=== PATIENT | female | born 1935 | race Caucasian/White ===

== ENCOUNTER 2020-08-01 22:04 | Day surgery (SDC) | payer MEDICARE, OTHER ==
[~2020-08-01] VITALS: Ht 165 cm; Wt 71.5 kg
[2020-08-01] MEDS ORDERED: LACTATED RINGERS 1,000 ML IV ONE (22:37)
[2020-08-01 22:53] LABS: BASOPHILS % (AUTO) 0 % (0-10); EOSINOPHILS # (AUTO) 0.1 10^3/uL (0.0-0.3); EOSINOPHILS % (AUTO) 2 % (0-10); HEMATOCRIT 43 % (35-52); HEMOGLOBIN 13.8 g/dL (11.5-16.0); LYMPHOCYTES # (AUTO) 1.7 10^3/uL (1.0-4.0); LYMPHOCYTES % (AUTO) 25 % (12-44); MEAN CORPUSCULAR HEMOGLOBIN 30 pg (25-34); MEAN CORPUSCULAR HGB CONC 33 g/dL (32-36); MEAN CORPUSCULAR VOLUME 91 fL (80-99); MEAN PLATELET VOLUME 9.6 fL (9.0-12.2); MONOCYTES # (AUTO) 0.6 10^3/uL (0.0-1.0); MONOCYTES % (AUTO) 9 % (0-12); NEUTROPHILS # (AUTO) 4.3 10^3/uL (1.8-7.8); NEUTROPHILS % (AUTO) 64 % (42-75); PLATELET COUNT 258 10^3/uL (130-400); WHITE BLOOD COUNT 6.7 10^3/uL (4.3-11.0)
[2020-08-01 22:55] LABS: BILIRUBIN,URINE NEGATIVE (NEGATIVE); CLARITY,URINE SL CLOUDY; COLOR,URINE YELLOW; GLUCOSE, URINE (UA) 3+ (NEGATIVE); KETONES,URINE TRACE (NEGATIVE); LEUKOCYTE ESTERASE ,URINE NEGATIVE (NEGATIVE); NITRITE,URINE NEGATIVE (NEGATIVE); PH,URINE 5.5 (5-9); PROTEIN,URINE NEGATIVE (NEGATIVE)
[2020-08-01 23:01] LABS: BACTERIA,URINE FEW /HPF
--- NOTE | 2020-08-01 23:02 | ED Abdominal Pain ---
General Chief Complaint: Abdominal/GI Problems Stated Complaint: CONSTIPATION Nursing Triage Note: c/o constipation x11 days. drank 1 bottle mg citrate approx. 1700 without results. Sepsis Screen: No Definite Risk Source of Information: Patient Exam Limitations: No Limitations History of Present Illness Date Seen by Provider: Aug 01, 2020 Time Seen by Provider: 22:25 Initial Comments This delightful 84-year-old woman presents to the emergency room with complaints of though bowel movement for 11 days. 2 weeks ago ago she had a dental extrac tion. She had a bout of diarrhea after that which she presumed it was related to medications she received 4 anesthetics. Since then she has been experiencing constipation. She did salt water cleanses consisting of 2 teaspoons of pink salt in a quart of water about a week ago and again about 3 days ago. The first one produced a bowel movement, but the second one did not. She has not had any bowel movement whatsoever since the first cleanse. Tonight she tried magnesium citrate without any improvement. She has escalating right sided abdominal pain. She denies any history of abdominal surgeries or chronic health problems. Prior to this month she had not been to see a doctor in 40 years since she finished having children. During the past week she did present to the [facility] walk- in clinic in [place] where blood work was reportedly obtained. An x-ray was also done. She reports no significant findings through these encounters. Allergies and Home Medications Allergies Coded Allergies: Penicillins (Verified Allergy, Unknown, 08/01/20) Patient Home Medication List Home Medication List Reviewed: Yes Review of Systems Review of Systems Constitutional: no symptoms reported EENTM: No Symptoms Reported Respiratory: No Symptoms Reported Cardiovascular: Other (hypertension noted) Gastrointestinal: See HPI, Nausea; Denies Vomiting Genitourinary: No Symptoms Reported Musculoskeletal: no symptoms reported Skin: no symptoms reported Psychiatric/Neurological: No Symptoms Reported Endocrine: No Symptoms Reported Hematologic/Lymphatic: No Symptoms Reported Past Xgraeja-Kznagz-Yedlln Hx Past Med/Social Hx: Reviewed Nursing Past Med/Soc Hx Patient Social History Alcohol Use: Denies Use Recreational Drug Use: No Smoking Status: Never a Smoker 2nd Hand Smoke Exposure: No Recent Foreign Travel: No Contact w/Someone Who Travel: No Recent Infectious Disease Expo: No Recent Hopitalizations: No Immunizations Up To Date Tetanus Booster (TDap): Unknown Seasonal Allergies Seasonal Allergies: No Past Medical History Surgeries: No Respiratory: No Cardiac: No Neurological: 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 oz. 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, no motor/sensory deficits, alert, normal mood/affect, oriented x 3 Skin: normal color, warm/dry Progress/Results/Core Measures Results/Orders Lab Results Laboratory Tests Test 08/01/20 22:40 08/01/20 22:45 Range/Units Urine Color YELLOW Urine Clarity SL CLOUDY Urine pH 5.5 5-9 Urine Specific [place] 1.015 L 1.016-1.022 Urine Protein NEGATIVE NEGATIVE Urine Glucose (UA) 3+ H NEGATIVE Urine Ketones TRACE H NEGATIVE Urine Nitrite NEGATIVE NEGATIVE Urine Bilirubin NEGATIVE NEGATIVE Urine Urobilinogen 1.0 < = 1.0 MG/DL Urine Leukocyte Esterase NEGATIVE NEGATIVE Urine RBC (Auto) NEGATIVE NEGATIVE Urine RBC NONE /HPF Urine WBC 5-10 H /HPF Urine Squamous Epithelial Cells 5-10 /HPF Urine Crystals NONE /LPF Urine Bacteria FEW H /HPF Urine Casts NONE /LPF Urine Mucus NEGATIVE /LPF Urine Culture Indicated YES White Blood Count 6.7 4.3-11.0 10^3/uL Red Blood Count 4.66 3.80-5.11 10^6/uL Hemoglobin 13.8 11.5-16.0 g/dL Hematocrit 43 35-52 % Mean Corpuscular Volume 91 80-99 fL Mean Corpuscular Hemoglobin 30 25-34 pg Mean Corpuscular Hemoglobin Concent 33 32-36 g/dL Red Cell Distribution Width 13.0 10.0-14.5 % Platelet Count 258 130-400 10^3/uL Mean Platelet Volume 9.6 9.0-12.2 fL Immature Granulocyte % (Auto) 0 % Neutrophils (%) (Auto) 64 42-75 % Lymphocytes (%) (Auto) 25 12-44 % Monocytes (%) (Auto) 9 0-12 % Eosinophils (%) (Auto) 2 0-10 % Basophils (%) (Auto) 0 0-10 % Neutrophils # (Auto) 4.3 1.8-7.8 10^3/uL Lymphocytes # (Auto) 1.7 1.0-4.0 10^3/uL Monocytes # (Auto) 0.6 0.0-1.0 10^3/uL Eosinophils # (Auto) 0.1 0.0-0.3 10^3/uL Basophils # (Auto) 0.0 0.0-0.1 10^3/uL Immature Granulocyte # (Auto) 0.0 0.0-0.1 10^3/uL Sodium Level 139 135-145 MMOL/L Potassium Level 3.7 3.6-5.0 MMOL/L Chloride Level 99 98-107 MMOL/L Carbon Dioxide Level 29 21-32 MMOL/L Anion Gap 11 5-14 MMOL/L Blood Urea Nitrogen 10 7-18 MG/DL Creatinine 1.15 0.60-1.30 MG/DL Estimat Glomerular Filtration Rate 45 BUN/Creatinine Ratio 9 Glucose Level 398 H 70-105 MG/DL Calcium Level 9.7 8.5-10.1 MG/DL Corrected Calcium 9.6 8.5-10.1 MG/DL Total Bilirubin 1.0 0.1-1.0 MG/DL Aspartate Amino Transf (AST/SGOT) 17 5-34 U/L Alanine Aminotransferase (ALT/SGPT) 19 0-55 U/L Alkaline Phosphatase 182 H 40-136 U/L C-Reactive Protein High Sensitivity 1.77 H 0.00-0.50 MG/DL Total Protein 7.3 6.4-8.2 GM/DL Albumin 4.1 3.2-4.5 GM/DL Lipase 51 8-78 U/L TSH [place] Testing 0.49 0.35-4.94 UIU/ML My Orders Orders - TONIE VALDEZ MD Cbc With Automated Diff (08/01/20 22:37) Comprehensive Metabolic Panel (08/01/20 22:37) Hs C Reactive Protein (08/01/20 22:37) Lipase (08/01/20 22:37) Ua Culture If Indicated (08/01/20 22:37) Ed Iv/Invasive Line Start (08/01/20 22:37) Lactated Ringers (Lr 1000 Ml Iv Solution (08/01/20 22:37) Urine Culture (08/01/20 22:40) Thyroid Analyzer (08/01/20 22:45) Ct Abdomen/Pelvis Wo (08/01/20 23:18) Ceftriaxone For Iv Use (Rocephin For I (08/02/20 00:15) Ciprofloxacin Iv 400mg/200ml (Cipro Iv S (08/02/20 00:15) Medications Given in ED Current Medications Medications Dose Ordered Sig/Michelle Route Start Time Stop Time Status Last Admin Dose Admin Lactated Ringer's 1,000 ml @ 0 mls/hr Q0M ONCE IV 08/01/20 22:37 08/01/20 22:38 DC 08/01/20 22:47 0 MLS/HR Vital Signs/I&O 08/01/20 22:10 Temp 36.2 Pulse 86 Resp 16 B/P (MAP) 186/112 (136) Pulse Ox 99 O2 Delivery Room Air 08/02/20 00:00 Intake Total 1000 ml Balance 1000 ml Blood Pressure Mean: 136 Progress Progress Note : Time: 00:48 Progress Note Patient was treated with a liter of IV fluids and Zofran. She declined treatment for her pain. Labs revealed hyperglycemia with new diagnosis of diabetes. She also had evidence of urinary tract infection on urinalysis. CT demonstrated proximal colonic distention with a spasm versus core lesion in the sigmoid colon. I discussed options with the patient and her daughters. Admission to expedite treatment of hypertension, diabetes, urinary tract infection, and possible bowel pathology was felt most appropriate after discussion. Patient was initially somewhat resistant but eventually conceded admission was a good idea to expedite her care. Despite discussing the plan previously to which the patient was agreeable, patient is now refusing the antibiotics stating she prefers to use [id number] cranberry juice and other herbal remedies. She states "I just don't feel comfortable taking antibiotics." She also indicated she would likely refuse the insulin as well. She has had multiple trips to the restroom during her ER stay. She reports one episode of scant watery stool. Diagnostic Imaging Diagonstic Imaging: CT Plain Films/CT/US/NM/MRI: abdomen, pelvis Comments CT abdomen and pelvis viewed by me and stat rad report reviewed. There is redundant colon with colonic distention. There is area of luminal stenosis in the sigmoid colon that could be from spasm or small core lesion. Incidental compression fracture at L1. Departure Communication (Admissions) Time/Spoke to Admitting Phy: 00:15 Dr. Emmanuelle Jeff will be consulted in the morning. Impression Primary Impression: Right sided abdominal pain Additional Impressions: Diabetes mellitus, new onset Urinary tract infection Qualified Codes: N39.0 - Urinary tract infection, site not specified Abnormal CT of the abdomen Hypertension Qualified Codes: I10 - Essential (primary) hypertension Disposition: ADMITTED INPATIENT Condition: Stable Admissions Decision to Admit Reason: Admit from ER (General) Decision to Admit/Date: Aug 02, 2020 Time/Decision to Admit Time: 00:15 Departure-Patient Inst. Referrals: NO,LOCAL PHYSICIAN (PCP/Family) Primary Care Physician TONIE VALDEZ MD Aug 01, 2020 23:02
[2020-08-01 23:09] LABS: ALBUMIN 4.1 GM/DL (3.2-4.5); POTASSIUM 3.7 MMOL/L (3.6-5.0)
[2020-08-01 23:10] LABS: CALCIUM 9.7 MG/DL (8.5-10.1)
[2020-08-01 23:11] LABS: TOTAL PROTEIN 7.3 GM/DL (6.4-8.2)
[2020-08-01 23:15] LABS: CREATININE SERUM 1.15 MG/DL (0.60-1.30)
[2020-08-01 23:47] LABS: TSH (THYROID ANALYZER) 0.49 UIU/ML (0.35-4.94)
[2020-08-02] MEDS: CIPROFLOXACIN IV 400MG/200ML 200 ML IV ONE ×2 (00:23→00:41)
[2020-08-02] MEDS: cefTRIAXone FOR IV USE 1,000 MG in WATER (STERILE) FOR INJECTION 10 ML IV ONE ×2 (00:23→00:42)
--- NOTE | 2020-08-02 00:40 | NUR ---
pt declined iv abx. reports she only takes herbal supplements. erp notified et. speaking with pt.
--- NOTE | 2020-08-02 01:02 | NUR ---
POLO MARIANO admitted to room 421-1, with an admitting diagnosis of ABDOMINAL PAIN, NEW DM, UTI on 08/02/20 from [facility] via WHEELCHAIR, accompanied by ER STAFF.POLO MARIANO introduced to surroundings, call light, bed controls, phone, TV, temperature control, lights, meal times, smoking policy, visitor policy, side rail policy, bathrooms and showers. Patient Rights given to patient in the handbook. POLO MARIANO verbalizes understanding that [facility] is not responsible for the loss or damage to any personal effects or valuables that are kept in the patients possession during their hospitalization.
[2020-08-02 01:06] VITALS: BP 181/85
[2020-08-02] MEDS ORDERED: fentaNYL INJECTION 100 MCG/2 ML AMP IVP PRN (01:15)
[2020-08-02] MEDS ORDERED: ONDANSETRON 4 MG/2 ML (SDV) Z0FRAN IVP PRN (01:15)
[2020-08-02] MEDS: LACTATED RINGERS 1,000 ML IV SCH ×3 (01:23→17:20)
[2020-08-02 04:42] VITALS: BP 152/72
--- NOTE | 2020-08-02 06:09 | Diagnostic Imaging Report ---
EXAM: CT Abdomen and Pelvis Without Intravenous Contrast. TECHNIQUE: All CT scans use one or more of the following dose optimizing techniques: automated exposure control, MA and/or KvP adjustment based on a patient size and exam type, or iterative reconstruction. INDICATION: Right-sided abdominal pain. Constipation. FINDINGS: The lung bases are clear. Liver appears normal. Gallbladder and bile ducts are normal. Pancreas and spleen are normal. The adrenal glands and kidneys are normal. The stomach is not distended. Small bowel is not dilated. There is moderate distention of the colon along the ascending, transverse and descending colon. There does appear to be a transition zone within the mid sigmoid region. Concern is raised for possible apple core lesion. No evidence of intra-abdominal adenopathy of pathologic size. Bladder is not distended. No pelvic masses with normal-appearing uterus. No free air or free fluid. There are diverticula in the sigmoid colon without evidence of diverticulitis. There is mild inferior endplate compression fracture of L1 with sclerosis most likely representing old change. There is no perivertebral edema. Aorta is very atherosclerotic and ectatic. Maximal diameter of the distal aorta is 2.8 cm. IMPRESSION: 1. Distended colon with transition zone in the mid sigmoid region raising concern of possible obstructing apple core lesion. Would recommend direct observation. These findings are concordant with the preliminary report. Dictated by: Dictated on workstation # [id number]
[2020-08-02 06:11] LABS: BASOPHILS % (AUTO) 1 % (0-10); EOSINOPHILS # (AUTO) 0.1 10^3/uL (0.0-0.3); EOSINOPHILS % (AUTO) 2 % (0-10); HEMATOCRIT 38 % (35-52); LYMPHOCYTES # (AUTO) 1.3 10^3/uL (1.0-4.0); LYMPHOCYTES % (AUTO) 26 % (12-44); MEAN CORPUSCULAR HEMOGLOBIN 29 pg (25-34); MEAN CORPUSCULAR HGB CONC 32 g/dL (32-36); MEAN CORPUSCULAR VOLUME 92 fL (80-99); MONOCYTES # (AUTO) 0.5 10^3/uL (0.0-1.0); MONOCYTES % (AUTO) 9 % (0-12); NEUTROPHILS # (AUTO) 3.1 10^3/uL (1.8-7.8); NEUTROPHILS % (AUTO) 62 % (42-75); PLATELET COUNT 222 10^3/uL (130-400); WHITE BLOOD COUNT 5.1 10^3/uL (4.3-11.0)
[2020-08-02 06:15] LABS: ALBUMIN 3.5 GM/DL (3.2-4.5); CHLORIDE 104 MMOL/L (98-107); POTASSIUM 3.9 MMOL/L (3.6-5.0); SODIUM 140 MMOL/L (135-145)
[2020-08-02 06:16] LABS: CALCIUM 9.1 MG/DL (8.5-10.1)
[2020-08-02 06:17] LABS: GLUCOSE 310 MG/DL (70-105); TOTAL PROTEIN 6.1 GM/DL (6.4-8.2)
[2020-08-02 06:19] LABS: BILIRUBIN,TOTAL 0.9 MG/DL (0.1-1.0); CARBON DIOXIDE 27 MMOL/L (21-32)
[2020-08-02 06:21] LABS: ALKALINE PHOSPHATASE 156 U/L (40-136); CREATININE SERUM 0.87 MG/DL (0.60-1.30); GFR ESTIMATED > 60
[2020-08-02 06:22] LABS: BUN/CREATININE RATIO 9
[2020-08-02 06:24] LABS: ALANINE AMINOTRANSFERASE 17 U/L (0-55)
[2020-08-02] MEDS: inSUlin ASPART (NovoLOG) 1 UNIT/0.01 ML (CHARGE PER UNIT) SC SCH ×4 (06:27→21:31)
--- NOTE | 2020-08-02 07:36 | Consultation - Surgery ---
OBED FORTUNE MED STUDENT 08/02/20 0736: History of Present Illness History of Present Illness Patient Consulted On(charisma/time) 08/02/20 07:28 Date Seen by Provider: Aug 02, 2020 Time Seen by Provider: 07:00 History of Present Illness This is an 84 YO female who presented to the ED with no bowel movements for 11 days. Pt did a salt water cleanse one week ago, which produced one BM, but none since. No improvement with Mag Citrate last night. In the ER, pt was found to have a UTI, glucose of 398, and abdominal CT showing colonic distension and possible apple core lesion. Pt had IV fluids and Zofran, but declined pain medications, antibiotics, and insulin. Pt has no history of medical problems, but has not been to the doctor for over 40 years. No abdominal surgeries. Today, pt states her pain is mainly in the RLQ. Had 2 small watery BM's since admission to the hospital. No blood in the stool. No N/V, CP, or SOB. WBC today is 5.1 from 6.7 in the ER last night. Glucose is 310. Hgb is 12.0 from 13.8 last night. Allergies and Home Medications Allergies Coded Allergies: Penicillins (Verified Allergy, Severe, SEVERE HIVES ALL OVER BODY, 08/02/20) Home Medications No Active Prescriptions or Reported Meds Past Dwqwlly-Ksuvjk-Jmaiyp Hx Patient Social History Alcohol Use: Denies Use Recreational Drug Use: No Smoking Status: Never a Smoker 2nd Hand Smoke Exposure: No Recent Foreign Travel: No Contact w/Someone Who Travel: No Recent Infectious Disease Expo: No Recent Hopitalizations: No Immunizations Up To Date Tetanus Booster (TDap): Unknown Seasonal Allergies Seasonal Allergies: No Surgeries History of Surgeries: No Respiratory History of Respiratory Disorde: No Cardiovascular History of Cardiac Disorders: No Neurological History of Neurological Disord: No 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 Genitourinary History of Genitourinary Disor: No Gastrointestinal History of Gastrointestinal Di: No Musculoskeletal History of Musculoskeletal Dis: No Endocrine History of Endocrine Disorders: No HEENT History of HEENT Disorders: No Cancer History of Cancer: No Psychosocial History of Psychiatric Problem: No Integumentary History of Skin or Integumenta: No Blood Transfusions History of Blood Disorders: No Family Medical History Family Medial History: Aneurysm Arthritis 19 FATHER Diabetes mellitus 19 FATHER Review of Systems-General Constitutional: No chills, No fever EENTM: No blurred vision, No double vision Respiratory: No cough, No dyspnea on exertion Cardiovascular: No chest pain, No edema Gastrointestinal: abdominal pain (RLQ); No nausea, No vomiting Genitourinary: No frequency, No hematuria Musculoskeletal: No back pain, No muscle pain Skin: No change in color, No change in hair/nails Psychiatric/Neurological: Denies Anxiety, Denies Depressed All Other Systems Reviewed Negative Unless Noted: Yes Physical Exam-General Problems Physical Exam Vital Signs Vital Signs - First Documented 08/01/20 22:10 Temp 36.2 Pulse 86 Resp 16 B/P (MAP) 186/112 (136) Pulse Ox 99 O2 Delivery Room Air Capillary Refill : Less Than 3 Seconds General Appearance: WD/WN, no apparent distress Eyes: Bilateral Eye Normal Inspection, Bilateral Eye EOMI HEENT: PERRL/EOMI, normal ENT inspection Neck: full range of motion, normal inspection Respiratory: chest non-tender, no respiratory distress, no accessory muscle use Cardiovascular: regular rate, rhythm, no edema, no murmur Gastrointestinal: soft, distended, other (diffuse tenderness, worst in RLQ) Extremities: normal inspection, no pedal edema Neurologic/Psychiatric: no motor/sensory deficits, alert, normal mood/affect Skin: normal color, warm/dry Lymphatic: no adenopathy Data Review Labs Laboratory Tests 08/01/20 22:40: Urine Color YELLOW, Urine Clarity SL CLOUDY, Urine pH 5.5, Urine Specific [place] 1.015L, Urine Protein NEGATIVE, Urine Glucose (UA) 3+H, Urine Ketones TRACEH, Urine Nitrite NEGATIVE, Urine Bilirubin NEGATIVE, Urine Urobilinogen 1.0, Urine Leukocyte Esterase NEGATIVE, Urine RBC (Auto) NEGATIVE, Urine RBC NONE, Urine WBC 5-10H, Urine Squamous Epithelial Cells 5-10, Urine Crystals NONE, Urine Bacteria FEWH, Urine Casts NONE, Urine Mucus NEGATIVE, Urine Culture Indicated YES 08/01/20 22:45: White Blood Count 6.7, Red Blood Count 4.66, Hemoglobin 13.8, Hematocrit 43, Mean Corpuscular Volume 91, Mean Corpuscular Hemoglobin 30, Mean Corpuscular Hemoglobin Concent 33, Red Cell Distribution Width 13.0, Platelet Count 258, Mean Platelet Volume 9.6, Immature Granulocyte % (Auto) 0, Neutrophils (%) (Auto) 64, Lymphocytes (%) (Auto) 25, Monocytes (%) (Auto) 9, Eosinophils (%) (Auto) 2, Basophils (%) (Auto) 0, Neutrophils # (Auto) 4.3, Lymphocytes # (Auto) 1.7, Monocytes # (Auto) 0.6, Eosinophils # (Auto) 0.1, Basophils # (Auto) 0.0, Immature Granulocyte # (Auto) 0.0, Sodium Level 139, Potassium Level 3.7, Chloride Level 99, Carbon Dioxide Level 29, Anion Gap 11, Blood Urea Nitrogen 10, Creatinine 1.15, Estimat Glomerular Filtration Rate 45, BUN/Creatinine Ratio 9, Glucose Level 398H, Calcium Level 9.7, Corrected Calcium 9.6, Total Bilirubin 1.0, Aspartate Amino Transf (AST/SGOT) 17, Alanine Aminotransferase (ALT/SGPT) 19, Alkaline Phosphatase 182H, C-Reactive Protein High Sensitivity 1.77H, Total Protein 7.3, Albumin 4.1, Lipase 51, TSH [place] Testing 0.49 08/02/20 05:52: White Blood Count 5.1, Red Blood Count 4.11, Hemoglobin 12.0, Hematocrit 38, Mean Corpuscular Volume 92, Mean Corpuscular Hemoglobin 29, Mean Corpuscular Hemoglobin Concent 32, Red Cell Distribution Width 12.9, Platelet Count 222, Mean Platelet Volume 10.0, Immature Granulocyte % (Auto) 0, Neutrophils (%) (Auto) 62, Lymphocytes (%) (Auto) 26, Monocytes (%) (Auto) 9, Eosinophils (%) (Auto) 2, Basophils (%) (Auto) 1, Neutrophils # (Auto) 3.1, Lymphocytes # (Auto) 1.3, Monocytes # (Auto) 0.5, Eosinophils # (Auto) 0.1, Basophils # (Auto) 0.0, Immature Granulocyte # (Auto) 0.0, Sodium Level 140, Potassium Level 3.9, Chloride Level 104, Carbon Dioxide Level 27, Anion Gap 9, Blood Urea Nitrogen 8, Creatinine 0.87, Estimat Glomerular Filtration Rate > 60, BUN/Creatinine Ratio 9, Glucose Level 310H, Calcium Level 9.1, Corrected Calcium 9.5, Total Bilirubin 0.9, Aspartate Amino Transf (AST/SGOT) 15, Alanine Aminotransferase (ALT/SGPT) 17, Alkaline Phosphatase 156H, Total Protein 6.1L, Albumin 3.5 Assessment/Plan Assessment/Plan Assessment/Plan UTI constipation DM high blood pressure refusing antibiotics, pain medication, and insulin bowel prep today, plan for colonoscopy in the morning Clinical Quality Measures DVT/VTE Risk/Contraindication: Risk Factor Score Per Nursin RFS Level Per Nursing on Admit: 3=High YASMIN JEFF DO 08/02/202031: History of Present Illness History of Present Illness History of Present Illness Consult requested for constipation/abnormal CT scan by Dr. Handley. Patient is an 84-year-old female who presented to the emergency department with 11 days of no bowel movement. Patient states that she was trying different cleanses in order to have a bowel movement but was only able to have one while doing so. Patient took mag citrate yesterday and now has had a little bit of success with passing stool. She is just not felt very well. She denies any abdominal pains. She has never had a colonoscopy performed. She denies any blood in the stools. She states nothing she is really done has made things better except for the mag citrate seems to be starting to move things through. She is never had really had any significant difficulties with bowel movements before. Patient had a CT scan with a possible apple core lesion noted in the sigmoid colon, with slight proximal distention of the colon to the lesion. Allergies and Home Medications Allergies Coded Allergies: Penicillins (Verified Allergy, Severe, SEVERE HIVES ALL OVER BODY, 08/02/20) Home Medications No Active Prescriptions or Reported Meds Patient Home Medication List Home Medication List Reviewed: Yes Past Dspelsu-Vtujhq-Lbuogd Hx Reviewed Nursing Assessment Reviewed/Agree w Nursing PMH: Yes Family Medical History Significant Family History: No Pertinent Family Hx Family Medial History: Aneurysm Arthritis 19 FATHER Diabetes mellitus 19 FATHER Review of Systems-General Constitutional: No chills, No fever EENTM: No blurred vision, No double vision Respiratory: No cough, No dyspnea on exertion Cardiovascular: No edema Gastrointestinal: abdominal pain (RLQ); No nausea, No vomiting Genitourinary: No frequency, No hematuria Musculoskeletal: No back pain, No muscle pain Skin: No change in color, No change in hair/nails Psychiatric/Neurological: Denies Anxiety, Denies Depressed All Other Systems Reviewed Negative Unless Noted: Yes (Negative excepted noted.) Physical Exam-General Problems Physical Exam General Appearance: WD/WN, no apparent distress HEENT: PERRL/EOMI, normal ENT inspection Neck: non-tender, supple, normal inspection Respiratory: chest non-tender, no respiratory distress, no accessory muscle use Cardiovascular: regular rate, rhythm, no edema, no JVD Gastrointestinal: distended (Minimal), other (Minimal diffuse tenderness, worst in RLQ) Rectal: deferred Back: no CVA tenderness, no vertebral tenderness Extremities: normal range of motion, normal inspection, no pedal edema Neurologic/Psychiatric: no motor/sensory deficits, alert, normal mood/affect, oriented x 3 Skin: normal color, warm/dry Lymphatic: no adenopathy Assessment/Plan Assessment/Plan Assessment/Plan constipation abnormal ct scan questionable apple core lesion sigmoid colon DM high blood pressure refusing antibiotics, pain medication, and insulin bowel prep today, plan for colonoscopy in the tomorrow she understands risks and benefits and wishes to proceed Golytely prep today, clear liquids, npo after midnight consent for colonoscopy Supervisory-Addendum Brief Verification & Attestation Participated in pt care: history, MDM, physical Personally performed: exam, history, MDM, supervision of care Care discussed with: Medical Student Procedures: n/a Results interpretation: Verified all documentation Verification and Attestation of Medical Student E/M Service A medical student performed and documented this service in my presence. I reviewed and verified all information documented by the medical student and made modifications to such information, when appropriate. I personally performed the physical exam and medical decision making. Yasmin Jeff, Aug 02, 2020,20:36 [employer]E MED STUDENT Aug 02, 2020 07:36 YASMIN JEFF DO Aug 02, 2020 20:32
[2020-08-02 08:00] VITALS: BP 126/69
[2020-08-02] MEDS: CIPROFLOXACIN 400 MG/D5W 200 ML (PRE-MIX) IV SCH ×2 (09:36→21:30)
[2020-08-02] MEDS: FAMOTIDINE 20MG/2ML IV (PEPCID) IVP SCH (09:36)
--- NOTE | 2020-08-02 09:58 | NUR ---
SPOKE WITH THE PT TO COMPLETE THE MED REC PT DENIES TAKING ANY PRESCRIPTION MEDICATIONS- WHEN I ASKED ABOUT OTC MEDS AND/OR SUPPLEMENTS PT SAID SHE DID TAKE SOME SUPPLEMENTS BUT COULD NOT REMEMBER THE NAMES AND INDICATED IT WAS NOTHING SHE TOOK CONSISTENTLY. FOR THIS REASON I SET HER PROFILE TO NO MEDICATIONS BUT I DID UPDATE HER PREFERRED PHARMACY
--- NOTE | 2020-08-02 11:55 | History & Physical ---
ROBERTO CARLOS SPARKS MED STUDENT 08/02/20 1155: HPI History of Present Illness: cc: constipation hpi: 84 yo F presents with constipation. pt stated that it has been 11 days since her last bm. pt stated that she self prescribed and took a bottle of magnesium citrate, then pt stated that this did not really do anything. pt had bm this morning. pt reported that there is no blood in the stool. pt stated that she has been having back pain. pt did not want to rate the pain. pt did not know when the pain started. pt stated she lifted something heavy and threw her back out. After 4 chiropractor visits her doctor told her it was her colon and not her back. Source: patient Date seen by provider: Aug 02, 2020 Time Seen by Provider: 08:45 Attending Physician Kathrine Handley MD PCP Eva Douglas Aprn Consult Date of Admission Aug 02, 2020 at 00:17 Home Medications Home Medications Reviewed patient Home Medication Reconciliation performed by pharmacy medication reconciliations electronics repair technician and/or nursing. Patients Allergies have been reviewed. Allergies Coded Allergies: Penicillins (Verified Allergy, Severe, SEVERE HIVES ALL OVER BODY, 08/02/20) HNP-Aspqzx-Gnpkuv Hx Patient Social History Marrital Status: Alcohol Use: Denies Use Recreational Drug Use: No Smoking Status: Never a Smoker 2nd Hand Smoke Exposure: No Recent Foreign Travel: No Contact w/other who traveled: No Recent Hopitalizations: No Recent Infectious Disease Expo: No Immunizations Up To Date Tetanus Booster (TDap): Unknown Past Medical History pt denied any past medical history. Family Medical History Significant Family History: Diabetes (father) Family History: Aneurysm Arthritis 19 FATHER Diabetes mellitus 19 FATHER Review of Systems ([facility]) Constitutional: No chills, No fever, No malaise Respiratory: No cough, No short of breath Cardiovascular: No chest pain, No palpitations Gastrointestinal: abdominal pain, constipation; No diarrhea, No nausea, No vomiting Genitourinary: No dysuria, No frequency, No incontinence Musculoskeletal: back pain; No joint pain Physical Exam-([facility]) Physical Exam Vital Signs VS - Last 72 Hours, by Label 08/01/20 08/02/20 08/02/20 08/02/20 22:10 00:44 01:02 01:06 Temp 36.2 36.6 36.3 Pulse 86 68 67 Resp 16 16 18 B/P (MAP) 186/112 (136) 161/98 (136) 181/85 Pulse Ox 99 100 100 O2 Delivery Room Air Room Air Room Air Room Air 08/02/20 08/02/20 08/02/20 04:42 08:00 08:00 Temp 36.2 36.6 Pulse 68 85 Resp 18 16 B/P (MAP) 152/72 (98) 126/69 (88) Pulse Ox 97 97 97 O2 Delivery Room Air Room Air Room Air Capillary Refill : Less Than 3 Seconds General Appearance: WD/WN, no apparent distress HEENT: PERRL/EOMI; No scleral icterus (R), No scleral icterus (L) Neck: non-tender, supple; No lymphadenopathy (R), No lymphadenopathy (L) Respiratory: chest non-tender, lungs clear, normal breath sounds, no respiratory distress, no accessory muscle use Cardiovascular: normal peripheral pulses, regular rate, rhythm, no edema, no murmur Peripheral Pulses: 2+ Carotid (R), 2+ Carotid (L), 2+ Dorsalis Pedis (R), 2+ Left Dors-Pedis (L), 2+ Radial Pulses (R), 2+ Radial Pulses (L) Gastrointestinal: normal bowel sounds, soft, tenderness (RLQ, LLQ) Extremities: non-tender, no pedal edema, normal capillary refill Neurologic/Psychiatric: maintenance mechanic millwright II-XII nml as tested, no motor/sensory deficits, alert, normal mood/affect, oriented x 3 Skin: normal color, warm/dry; No diaphoresis Lymphatic: no adenopathy Assessment/Plan Assessment/Plan Admission Status: Observation (1) Abnormal CT of the abdomen Status: Acute Assessment & Plan: colonscopy prep today, colonoscopy possibly or Friday (2) Right sided abdominal pain Status: Acute Assessment & Plan: colonscopy prep today, colonoscopy possibly or Friday (3) Hypertension Status: Acute Assessment & Plan: pt does not want to take any medications Qualifiers: Qualified Codes: I10 - Essential (primary) hypertension (4) Urinary tract infection Status: Acute Assessment & Plan: pt denied antibiotics Qualifiers: Qualified Codes: N39.0 - Urinary tract infection, site not specified (5) Diabetes mellitus, new onset Status: Acute Assessment & Plan: hemoglobin A1c ordered, pt denied insulin (6) DVT prophylaxis Status: Acute Assessment & Plan: lovenox injections Clinical Quality Measures DVT/VTE Risk/Contraindication: Risk Factor Score Per Nursin RFS Level Per Nursing on Admit: 3=High KATHRINE HANDLEY MD 08/02/20 2232: HPI History of Present Illness: Patient states that she has not had a BM in over a week. She has been having increasing abdominal pain. States that she thought it was her back but it did not improve with going to the chiropractor. States that she has not been to the doctor in a long time. Denies ever having any scopes. Source: patient Exam Limitations: no limitations Home Medications Allergies Coded Allergies: Penicillins (Verified Allergy, Severe, SEVERE HIVES ALL OVER BODY, 08/02/20) HPH-Hntpev-Seyeyj Hx Family Medical History Family History: Aneurysm Arthritis 19 FATHER Diabetes mellitus 19 FATHER Review of Systems ([facility]) Constitutional: no symptoms reported; No chills, No fever, No malaise Respiratory: no symptoms reported; No cough, No dyspnea on exertion, No short of breath Cardiovascular: no symptoms reported; No chest pain, No edema, No palpitations Gastrointestinal: abdominal pain, constipation; No diarrhea; loss of appetite; No nausea, No vomiting Genitourinary: no symptoms reported; No dysuria, No frequency, No hematuria : No Musculoskeletal: back pain; No joint pain, No muscle pain Skin: no symptoms reported; No lesions, No rash Psychiatric/Neurological: No Symptoms Reported, Weakness Reviewed Test Results Reviewed Test Results Lab Laboratory Tests Test 08/01/20 22:40 08/01/20 22:45 08/02/20 05:52 08/02/20 12:26 Range/Units Urine Color YELLOW Urine Clarity SL CLOUDY Urine pH 5.5 5-9 Urine Specific [place] 1.015 L 1.016-1.022 Urine Protein NEGATIVE NEGATIVE Urine Glucose (UA) 3+ H NEGATIVE Urine Ketones TRACE H NEGATIVE Urine Nitrite NEGATIVE NEGATIVE Urine Bilirubin NEGATIVE NEGATIVE Urine Urobilinogen 1.0 < = 1.0 MG/DL Urine Leukocyte Esterase NEGATIVE NEGATIVE Urine RBC (Auto) NEGATIVE NEGATIVE Urine RBC NONE /HPF Urine WBC 5-10 H /HPF Urine Squamous Epithelial Cells 5-10 /HPF Urine Crystals NONE /LPF Urine Bacteria FEW H /HPF Urine Casts NONE /LPF Urine Mucus NEGATIVE /LPF Urine Culture Indicated YES White Blood Count 6.7 5.1 4.3-11.0 10^3/uL Red Blood Count 4.66 4.11 3.80-5.11 10^6/uL Hemoglobin 13.8 12.0 11.5-16.0 g/dL Hematocrit 43 38 35-52 % Mean Corpuscular Volume 91 92 80-99 fL Mean Corpuscular Hemoglobin 30 29 25-34 pg Mean Corpuscular Hemoglobin Concent 33 32 32-36 g/dL Red Cell Distribution Width 13.0 12.9 10.0-14.5 % Platelet Count 258 222 130-400 10^3/uL Mean Platelet Volume 9.6 10.0 9.0-12.2 fL Immature Granulocyte % (Auto) 0 0 % Neutrophils (%) (Auto) 64 62 42-75 % Lymphocytes (%) (Auto) 25 26 12-44 % Monocytes (%) (Auto) 9 9 0-12 % Eosinophils (%) (Auto) 2 2 0-10 % Basophils (%) (Auto) 0 1 0-10 % Neutrophils # (Auto) 4.3 3.1 1.8-7.8 10^3/uL Lymphocytes # (Auto) 1.7 1.3 1.0-4.0 10^3/uL Monocytes # (Auto) 0.6 0.5 0.0-1.0 10^3/uL Eosinophils # (Auto) 0.1 0.1 0.0-0.3 10^3/uL Basophils # (Auto) 0.0 0.0 0.0-0.1 10^3/uL Immature Granulocyte # (Auto) 0.0 0.0 0.0-0.1 10^3/uL Sodium Level 139 140 135-145 MMOL/L Potassium Level 3.7 3.9 3.6-5.0 MMOL/L Chloride Level 99 104 98-107 MMOL/L Carbon Dioxide Level 29 27 21-32 MMOL/L Anion Gap 11 9 5-14 MMOL/L Blood Urea Nitrogen 10 8 7-18 MG/DL Creatinine 1.15 0.87 0.60-1.30 MG/DL Estimat Glomerular Filtration Rate 45 > 60 BUN/Creatinine Ratio 9 9 Glucose Level 398 H 310 H 70-105 MG/DL Calcium Level 9.7 9.1 8.5-10.1 MG/DL Corrected Calcium 9.6 9.5 8.5-10.1 MG/DL Total Bilirubin 1.0 0.9 0.1-1.0 MG/DL Aspartate Amino Transf (AST/SGOT) 17 15 5-34 U/L Alanine Aminotransferase (ALT/SGPT) 19 17 0-55 U/L Alkaline Phosphatase 182 H 156 H 40-136 U/L C-Reactive Protein High Sensitivity 1.77 H 0.00-0.50 MG/DL Total Protein 7.3 6.1 L 6.4-8.2 GM/DL Albumin 4.1 3.5 3.2-4.5 GM/DL Lipase 51 8-78 U/L TSH [place] Testing 0.49 0.35-4.94 UIU/ML Glucometer 263 H 70-110 MG/DL Test 08/02/20 19:37 Range/Units Glucometer 293 H 70-110 MG/DL Physical Exam-([facility]) Physical Exam General Appearance: WD/WN, no apparent distress HEENT: PERRL/EOMI Neck: non-tender, full range of motion, supple Respiratory: chest non-tender, lungs clear, normal breath sounds, no respiratory distress, no accessory muscle use Cardiovascular: normal peripheral pulses, regular rate, rhythm, no edema, no murmur Gastrointestinal: normal bowel sounds, soft; No guarding, No rebound; tenderness (RLQ, LLQ) Back: no CVA tenderness, no vertebral tenderness Extremities: normal range of motion, non-tender, no pedal edema, no calf tenderness, normal capillary refill Neurologic/Psychiatric: maintenance mechanic millwright II-XII nml as tested, no motor/sensory deficits, alert, normal mood/affect, oriented x 3 Skin: normal color, warm/dry Lymphatic: no adenopathy Assessment/Plan Assessment/Plan (1) Right sided abdominal pain Status: Acute Assessment & Plan: - Consult General Surgery for scopes, prep planned for tonight (2) Abnormal CT of the abdomen Status: Acute (3) Diabetes mellitus, new onset Status: Acute Assessment & Plan: hemoglobin A1c pending, SSI (patient has denied treatment) (4) Hypertension Status: Acute Assessment & Plan: - Start Lisinopril today, continue to monitor blood pressures Qualifiers: Qualified Codes: I10 - Essential (primary) hypertension (5) Urinary tract infection Status: Acute Assessment & Plan: - Patient declined antibiotics today Qualifiers: Qualified Codes: N39.0 - Urinary tract infection, site not specified (6) DVT prophylaxis Status: Acute Assessment & Plan: lovenox injections ROBERTO CARLOS SPARKS STUDENT Aug 02, 2020 11:55 KATHRINE HANDLEY MD Aug 02, 2020 22:32
[2020-08-02 12:00] VITALS: BP 136/72
--- NOTE | 2020-08-02 13:58 | NUR ---
"RD ASSESSMENT PMHx: no PMH, pt states she has not been to doctor in 40years; new onset DM PT INTERACTION: Pt was awake and pleasant during nutrition assessment. Pt states current appetite is good. Note pt is currently NPO, per chart review. Pt states following a regular diet at home, and has no issues with chewing/swallowing food. Pt states some recent issues with nausea. Pt states some recent issues with constipation, and that her last BM was 08/01. Note pt not currently on bowel regimen per chart review. Pt states recent wt loss during last 2-3w, but unsure of amount lost. Note unable to determine recent wt hx, per chart review. ABNORMAL NUTRITION-RELATED LAB VALUES LOW: Pro 6.1; HIGH: glu 310; alkphos 156 Est. kcal needs: 1425 kcal | 20 kcal/kg Est. Pro needs: 72 g Pro | 1.0 g Pro/kg PES STATEMENT: Inadequate oral intake (NI-2.1) related to nausea | NPO status as evidenced by pt interview | chart review INTERVENTION: Note pt is currently NPO. Would recommend diet advancement to consistent CHO diet, when medically able and as tolerated. Will offer diet education on DM management prior to discharge. Will continue to follow and reassess as pt needs, intake, and status change. Sandra Capellan, MS RD LD"
--- NOTE | 2020-08-02 15:00 | NUR ---
MESSAGE SENT TO DR SHORT PER PT REQUEST FOR POSSIBLE DIET ORDER.
[2020-08-02] MEDS ORDERED: GOLYTELY POWDER 4000 ML BTL PO NR (16:00)
[2020-08-02 16:07] VITALS: BP 133/93
[2020-08-02 21:20] VITALS: BP 179/83
[2020-08-03] VITALS (9 sets, daily range): BP systolic 134–184; BP diastolic 65–85
[2020-08-03] MEDS: LACTATED RINGERS 1,000 ML IV SCH ×4 (00:59→21:21)
[2020-08-03 06:48] LABS: BASOPHILS % (AUTO) 0 % (0-10); EOSINOPHILS # (AUTO) 0.1 10^3/uL (0.0-0.3); EOSINOPHILS % (AUTO) 3 % (0-10); HEMATOCRIT 36 % (35-52); HEMOGLOBIN 11.4 g/dL (11.5-16.0); LYMPHOCYTES # (AUTO) 1.2 10^3/uL (1.0-4.0); LYMPHOCYTES % (AUTO) 25 % (12-44); MEAN CORPUSCULAR HEMOGLOBIN 29 pg (25-34); MEAN CORPUSCULAR HGB CONC 32 g/dL (32-36); MEAN CORPUSCULAR VOLUME 92 fL (80-99); MEAN PLATELET VOLUME 10.5 fL (9.0-12.2); MONOCYTES # (AUTO) 0.5 10^3/uL (0.0-1.0); MONOCYTES % (AUTO) 10 % (0-12); NEUTROPHILS # (AUTO) 3.1 10^3/uL (1.8-7.8); NEUTROPHILS % (AUTO) 63 % (42-75); PLATELET COUNT 197 10^3/uL (130-400); WHITE BLOOD COUNT 4.9 10^3/uL (4.3-11.0)
[2020-08-03] MEDS: inSUlin ASPART (NovoLOG) 1 UNIT/0.01 ML (CHARGE PER UNIT) SC SCH ×4 (06:50→20:08)
[2020-08-03 07:12] LABS: ALANINE AMINOTRANSFERASE 14 U/L (0-55); ALBUMIN 3.1 GM/DL (3.2-4.5); ALKALINE PHOSPHATASE 135 U/L (40-136); BUN/CREATININE RATIO 7; CALCIUM 8.7 MG/DL (8.5-10.1); CARBON DIOXIDE 24 MMOL/L (21-32); CHLORIDE 103 MMOL/L (98-107); CREATININE SERUM 0.72 MG/DL (0.60-1.30); GFR ESTIMATED > 60; GLUCOSE 248 MG/DL (70-105); POTASSIUM 3.1 MMOL/L (3.6-5.0); SODIUM 140 MMOL/L (135-145); TOTAL PROTEIN 5.6 GM/DL (6.4-8.2)
[2020-08-03] MEDS: CIPROFLOXACIN 400 MG/D5W 200 ML (PRE-MIX) IV SCH ×2 (09:43→20:05)
[2020-08-03] MEDS: lisINopril 20 MG (PRINIVIL) TABLET PO SCH (09:44)
[2020-08-03] MEDS: FAMOTIDINE 20MG/2ML IV (PEPCID) IVP SCH (09:44)
[2020-08-03] MEDS ORDERED: KCL 20 MEQ TAB (K-DUR) PO NR (09:45)
--- NOTE | 2020-08-03 10:08 | NUR ---
CM/SS visited with patient for discharge planning. The patient was pleasant and willing to discuss discharge planning. She states she has done colon prep and is having a colonoscopy today. Home: The patient states that she still owns her house in [place]; however, she is staying with her son at [address] in [place]. She reports she has been living at her son's house with her spouse for the past 2 years. The patient states that all her needs are being met. She states that she is independent at home and is still able to do housecleaning and laundry; however, her daughter does assist with "her duties" such as cooking according to patient. Equipment: Patient states she has a shower chair and bedside commode. Denies any other equipment. Supports: The patient is receiving assistance from her son and daughter in [place]. She has additional children in [place] and [facility]. The patient is and living with her spouse at son's house. CM/SS will continue to follow.
--- NOTE | 2020-08-03 11:23 | NUR ---
WILL GIVE 40 OF PO POTASSIUM AFTER COLONOSCOPY PER DR HERNANDEZ
--- NOTE | 2020-08-03 12:19 | Progress Note ---
ROBERTO CARLOS SPARKS MED STUDENT 08/03/20 1219: Subjective Subjective/Events-last exam Pt stated that she is feeling better today, but that she is still having some low back pain. pt is also having RLQ tenderness to palpation. pain was rated as 2/10. pt stated that the pain is sharp and that she only notices it when she is moving around. pt said that the golytely she was given yesterday helped with her constipation. pt is scheduled for a colonoscopy today. Review of Systems General: No Chills, No Fatigue Pulmonary: No Dyspnea, No Cough Cardiovascular: No: Chest Pain, Palpitations Gastrointestinal: Abdominal Pain; No: Nausea, Vomiting, Diarrhea, Constipation, Melena Genitourinary: No Dysuria, No Frequency Musculoskeletal: back pain Focused Exam Respiratory: Chest Non Tender, Lungs Clear, Normal Breath Sounds, No Accessory Muscle Use, No Respiratory Distress Cardiovascular: Regular Rate, Rhythm, No Edema, Normal Peripheral Pulses Peripheral Pulses: 2+ Carotid (R), 2+ Carotid (L), 2+ Dorsalis Pedis (R), 2+ Left Dors-Pedis (L), 2+ Radial Pulses (R), 2+ Radial Pulses (L) Skin: normal color, warm/dry; No diaphoresis Objective Exam Last Set of Vital Signs Vital Signs Date Time Temp Pulse Resp B/P (MAP) Pulse Ox O2 Delivery O2 Flow Rate FiO2 08/03/20 11:10 36.6 62 16 164/74 (104) 96 08/03/20 03:59 Room Air Capillary Refill : Less Than 3 Seconds I&O Intake and Output 08/03/20 00:00 Intake Total 4000 ml Output Total 2075 ml Balance 1925 ml Intake Oral 4000 ml Output Urine Total 2075 ml # Bowel Movements 32 Daily Weight Change No No General: Alert, Oriented X3, No Acute Distress Neck: Supple Lungs: Clear to Auscultation Heart: Regular Rate, No Murmurs Abdomen: Normal Bowel Sounds Extremities: No Cyanosis, No Edema, Normal Pulses Neuro: Normal Speech Psych/Mental Status: Mental Status NL, Mood NL Results/Procedures Lab Laboratory Tests 08/02/20 12:26: Glucometer 263H 08/02/20 19:37: Glucometer 293H 08/03/20 05:25: White Blood Count 4.9, Red Blood Count 3.89, Hemoglobin 11.4L, Hematocrit 36, Mean Corpuscular Volume 92, Mean Corpuscular Hemoglobin 29, Mean Corpuscular Hemoglobin Concent 32, Red Cell Distribution Width 13.0, Platelet Count 197, Mean Platelet Volume 10.5, Immature Granulocyte % (Auto) 0, Neutrophils (%) (Auto) 63, Lymphocytes (%) (Auto) 25, Monocytes (%) (Auto) 10, Eosinophils (%) (Auto) 3, Basophils (%) (Auto) 0, Neutrophils # (Auto) 3.1, Lymphocytes # (Auto) 1.2, Monocytes # (Auto) 0.5, Eosinophils # (Auto) 0.1, Basophils # (Auto) 0.0, Immature Granulocyte # (Auto) 0.0, Sodium Level 140, Potassium Level 3.1L, Chloride Level 103, Carbon Dioxide Level 24, Anion Gap 13, Blood Urea Nitrogen 5L, Creatinine 0.72, Estimat Glomerular Filtration Rate > 60, BUN/Creatinine Ratio 7, Glucose Level 248H, Calcium Level 8.7, Corrected Calcium 9.4, Total Bilirubin 1.0, Aspartate Amino Transf (AST/SGOT) 15, Alanine Aminotransferase (ALT/SGPT) 14, Alkaline Phosphatase 135, Total Protein 5.6L, Albumin 3.1L 08/03/20 11:16: Glucometer 222H Microbiology 08/01/20 Urine Culture - Final, Complete >=3 Gram Positive Isolates Assessment/Plan Assessment/Plan (1) Right sided abdominal pain Status: Acute Assessment & Plan: - Consult General Surgery for scopes, colonoscopy planned fo r today (2) Abnormal CT of the abdomen Status: Acute Assessment & Plan: - colonoscopy planned for today (3) Diabetes mellitus, new onset Status: Acute Assessment & Plan: hemoglobin A1c pending, SSI (patient has denied treatment) (4) Hypertension Status: Acute Assessment & Plan: - Start Lisinopril today, continue to monitor blood pressures (patient has denied treatment) Qualifiers: Qualified Codes: I10 - Essential (primary) hypertension (5) Urinary tract infection Status: Acute Assessment & Plan: - Patient declined antibiotics today Qualifiers: Qualified Codes: N39.0 - Urinary tract infection, site not specified (6) Hypokalemia Status: Acute Assessment & Plan: potassium chloride tablets (7) DVT prophylaxis Status: Acute Assessment & Plan: lovenox injections Clinical Quality Measures DVT/VTE Risk/Contraindication: Risk Factor Score Per Nursin RFS Level Per Nursing on Admit: 3=High KATHRINE HANDLEY MD 08/03/202119: Subjective Subjective/Events-last exam Patient doing well. Plan for colonoscopy today. Review of Systems General: No Chills, No Fatigue Pulmonary: No Dyspnea, No Cough Cardiovascular: No: Chest Pain, Palpitations Gastrointestinal: No: Nausea, Vomiting, Diarrhea Genitourinary: No Dysuria, No Frequency Musculoskeletal: back pain Objective Exam General: Alert, Oriented X3, Cooperative, No Acute Distress HEENT: Mucous Memb Moist/[place] Lungs: Clear to Auscultation, Normal Air Movement Heart: Regular Rate, No Murmurs Abdomen: Normal Bowel Sounds, Soft, Other (RLQ ttp, no rebound or gaurding, normal bowel sounds) Extremities: No Edema, No Tenderness/Swelling Skin: No Rashes, No Breakdown Neuro: Normal Speech, Sensation Intact, Cranial Nerves 3-12 NL Psych/Mental Status: Mental Status NL, Mood NL Assessment/Plan Assessment/Plan (1) Right sided abdominal pain Status: Acute Assessment & Plan: - Consult General Surgery for scopes, colonoscopy planned for today 08/03: Patient prepped for scope today (2) Abnormal CT of the abdomen Status: Acute Assessment & Plan: - colonoscopy planned for today (3) Diabetes mellitus, new onset Status: Acute Assessment & Plan: hemoglobin A1c pending, SSI (patient has denied treatment) (4) Hypertension Status: Acute Assessment & Plan: - Start Lisinopril today, continue to monitor blood pressures (patient has denied treatment) Qualifiers: Qualified Codes: I10 - Essential (primary) hypertension (5) Urinary tract infection Status: Acute Assessment & Plan: - Patient declined antibiotics today Qualifiers: Qualified Codes: N39.0 - Urinary tract infection, site not specified (6) Hypokalemia Status: Acute Assessment & Plan: potassium chloride tablets (7) DVT prophylaxis Status: Acute Assessment & Plan: lovenox injections Supervisory-Addendum Brief Supervisory Addendum Verification and Attestation of Medical Student E/M Service A medical student performed and documented this service in my presence. I reviewed and verified all information documented by the medical student and made modifications to such information, when appropriate. I personally performed the physical exam and medical decision making. Kathrine Handley, Aug 03, 2020,21:20 ROBERTO CARLOS SPARKS MED STUDENT Aug 03, 2020 12:19 KATHRINE HANDLEY MD Aug 03, 2020 21:20
--- NOTE | 2020-08-03 14:00 | NUR ---
PT TAKEN OFF FLOOR FOR PROCEDURE
[2020-08-03] MEDS ORDERED: LACTATED RINGERS 1,000 ML IV STA (14:49)
[2020-08-03] MEDS ORDERED: LACTATED RINGERS 1,000 ML IV ONE (14:49)
[2020-08-03] MEDS ORDERED: PROPOFOL INJECTION 50 ML IV ONE (15:58)
--- NOTE | 2020-08-03 16:09 | Progress Note - Surgery ---
Subjective Date Seen by a Provider: Aug 03, 2020 Time Seen by a Provider: 15:51 Subjective/Events-last exam No new complaints. NPO. Did golytely prep. Had lots of bowel movements. Denies n/v fever sweats chills shortness of breath or chest pain. Objective Exam Vital Signs Date Time Temp Pulse Resp B/P (MAP) Pulse Ox O2 Delivery O2 Flow Rate FiO2 08/03/20 11:10 36.6 62 16 164/74 (104) 96 08/03/20 09:00 96 Room Air 08/03/20 07:15 36.9 64 16 137/80 (99) 94 08/03/20 03:59 36.5 61 20 134/65 (88) 97 Room Air 08/03/20 00:14 37.2 72 20 184/82 (116) 94 Room Air 08/02/20 21:20 179/83 (115) 08/02/20 20:30 Room Air 08/02/20 19:47 36.7 91 16 96 Room Air I & O 08/03/20 07:00 Intake Total 5100 ml Output Total 2300 ml Balance 2800 ml Capillary Refill : Less Than 3 Seconds General Appearance: No Apparent Distress, WD/WN HEENT: PERRL/EOMI Neck: Full Range of Motion, Non Tender Respiratory: Chest Non Tender, No Accessory Muscle Use, No Respiratory Distress Cardiovascular: Regular Rate, Rhythm, No Edema, Normal Peripheral Pulses Peripheral Pulses: 2+ Carotid (R), 2+ Carotid (L), 2+ Dorsalis Pedis (R), 2+ Left Dors-Pedis (L), 2+ Radial Pulses (R), 2+ Radial Pulses (L) Gastrointestinal: normal bowel sounds, soft; No guarding, No rebound Extremity: Normal Inspection, Normal Range of Motion Neurologic/Psychiatric: Alert, Oriented x3, No Motor/Sensory Deficits Skin: Normal Color, Warm/Dry Lymphatic: No Adenopathy Results Lab Laboratory Tests 08/02/20 19:37: Glucometer 293H 08/03/20 05:25: White Blood Count 4.9, Red Blood Count 3.89, Hemoglobin 11.4L, Hematocrit 36, Mean Corpuscular Volume 92, Mean Corpuscular Hemoglobin 29, Mean Corpuscular He moglobin Concent 32, Red Cell Distribution Width 13.0, Platelet Count 197, Mean Platelet Volume 10.5, Immature Granulocyte % (Auto) 0, Neutrophils (%) (Auto) 63, Lymphocytes (%) (Auto) 25, Monocytes (%) (Auto) 10, Eosinophils (%) (Auto) 3, Basophils (%) (Auto) 0, Neutrophils # (Auto) 3.1, Lymphocytes # (Auto) 1.2, Monocytes # (Auto) 0.5, Eosinophils # (Auto) 0.1, Basophils # (Auto) 0.0, Immature Granulocyte # (Auto) 0.0, Sodium Level 140, Potassium Level 3.1L, Chloride Level 103, Carbon Dioxide Level 24, Anion Gap 13, Blood Urea Nitrogen 5L, Creatinine 0.72, Estimat Glomerular Filtration Rate > 60, BUN/Creatinine Ratio 7, Glucose Level 248H, Calcium Level 8.7, Corrected Calcium 9.4, Total Bilirubin 1.0, Aspartate Amino Transf (AST/SGOT) 15, Alanine Aminotransferase (ALT/SGPT) 14, Alkaline Phosphatase 135, Total Protein 5.6L, Albumin 3.1L 08/03/20 11:16: Glucometer 222H Microbiology 08/01/20 Urine Culture - Final, Complete >=3 Gram Positive Isolates Assessment/Plan Assessment/Plan Assessment/Plan constipation abnormal ct scan questionable apple core lesion sigmoid colon DM high blood pressure refusing antibiotics, pain medication, and insulin plan for colonoscopy in the today she understands risks and benefits and wishes to proceed consent for colonoscopy further recs pending colonoscopy results. Clinical Quality Measures DVT/VTE Risk/Contraindication: Risk Factor Score Per Nursin RFS Level Per Nursing on Admit: 3=High YASMIN SHORT DO Aug 03, 2020 16:09
[2020-08-03] MEDS ORDERED: ESMOLOL 100 MG/10 ML (BREVIBLOC) VIAL ONE (16:21)
[2020-08-03] MEDS ORDERED: proPOfol 200 MG/20 ML (DIPRIVAN) VIAL IV ONE (16:27)
--- NOTE | 2020-08-03 19:07 | Progress Note-Post Operative ---
Post-Operative Progess Note Surgeon (s)/Petroleum Terminal Plant Operator (s) Surgeon YASMIN SHORT DO Petroleum Terminal Plant Operator: na Pre-Operative Diagnosis abnormal ct scan, constipation Post-Operative Diagnosis colon polyp x 2, diverticulosis, sigmoid narrowing Procedure & Operative Findings Date of Procedure 08/03/20 Procedure Performed/Findings colonoscopy c hot bx polypectomy x 2 cold biopsies sigmoid colon inflammation/narrowing with stephen inking Anesthesia Type per automatic tire tester Estimated Blood Loss Estimated blood loss (mL): min Specimens/Packing Specimens Removed cecal and sigmoid polyp cold biopsies of sigmoid inflammation/narrowing YASMIN SHORT DO Aug 03, 2020 19:07
--- NOTE | 2020-08-03 20:10 | Anesthesia-General Post-Op ---
MAC Patient Condition Mental Status/LOC: Same as Preop Cardiovascular: Satisfactory Nausea/Vomiting: Absent Respiratory: Satisfactory Pain: Controlled Complications: Absent Post Op Complications Complications None Follow Up Care/Instructions Patient Instructions None needed. Anesthesiology Discharge Order Discharge Order Patient is doing well, no complaints, stable vital signs, no apparent adverse anesthesia problems. No complications reported per nursing. SARA HERNANDEZ CRNA Aug 03, 2020 20:10
[2020-08-03] MEDS ORDERED: diphenhydrAMINE 25 MG TAB (BENADRYL) PO PRN (21:30)
[2020-08-03] MEDS: metroNIDAZOLE 500MG/100ML IVPB 100 ML IV SCH (21:47)
[2020-08-04] VITALS: BP 178/74
[2020-08-04 03:57] VITALS: BP 148/67
[2020-08-04] MEDS: inSUlin ASPART (NovoLOG) 1 UNIT/0.01 ML (CHARGE PER UNIT) SC SCH (05:42)
[2020-08-04] MEDS: metroNIDAZOLE 500MG/100ML IVPB 100 ML IV SCH (05:43)
[2020-08-04] MEDS: LACTATED RINGERS 1,000 ML IV SCH (06:05)
--- NOTE | 2020-08-04 06:20 | OPERATIVE REPORT ---
DATE OF SERVICE: 08/03/2020 PREOPERATIVE DIAGNOSES: Abnormal CT scan, constipation. POSTOPERATIVE DIAGNOSES: Colon polyp x2, diverticulosis and sigmoid narrowing. PROCEDURE: Colonoscopy with hot biopsy polypectomy x2 and cold biopsies of sigmoid colon inflammation/narrowing area with Annabelle inking. SURGEON: Yasmin Jeff DO ANESTHESIA: Per PROJECT DEVELOPMENT DIRECTOR. ESTIMATED BLOOD LOSS: None. COMPLICATIONS: None. INDICATIONS: The patient is an 84-year-old female with constipation symptoms. She had a CT scan demonstrating a possible apple core lesion at the sigmoid colon. She understands risks and benefits of procedure and wished to proceed with procedure. Consent was signed in the chart. DESCRIPTION OF PROCEDURE: The patient was taken to the endoscopy suite, placed in left lateral recumbent position. Timeout was performed. Digital rectal exam was performed. There were no palpable polyps, masses or ulcerations. Scope was inserted in the rectum and advanced all the way to cecum with minimal difficulty. There is a small polyp in the cecum, which hot biopsy polypectomy was performed. Scope was then slowly retracted back. There were no other polyps, masses or ulcerations within the cecum, ascending, transverse and descending colon. In the sigmoid colon, moderate amount of diverticulosis present. There is an area of narrowing around a substantial amount of diverticulosis. In this area, there was also some active inflammatory changes, questionable diverticulitis versus ulceration present. Cold biopsies of this area were obtained carefully. The narrowing was not obstructing. There was plenty of room for the scope to be passed through this area as well. Just distal to this area, Annabelle inking was performed for localization of the narrowing. Scope was then continuously retracted back. There were another small polyp in the distal sigmoid, which hot biopsy polypectomy was performed. Scope was then continuously retracted back into the rectum, where it was also retroflexed noting no other pathology. Scope was returned to its normal position, slowly withdrawn until completely removed. The patient tolerated procedure well without any complications. She was taken to recovery room in stable condition. RECOMMENDATIONS: The patient will follow up on pathology results. The patient with area of narrowing, I do not think this is causing an obstruction and this could be active diverticulitis versus a possible ulcerative mass. Await biopsy results. We will treat for diverticulitis with Cipro and Flagyl. Await biopsy results. If biopsy results were benign, we would strongly reconsider repeat endoscopy in short term followup. Job ID: [id number] DocumentID: [id number] Dictated Date: 08/03/2020 19:11:38 Industrial Controller Date: 08/04/2020 06:20:21 Dictated By: YASMIN JEFF DO
[2020-08-04 06:28] LABS: BASOPHILS % (AUTO) 0 % (0-10); EOSINOPHILS # (AUTO) 0.1 10^3/uL (0.0-0.3); EOSINOPHILS % (AUTO) 2 % (0-10); HEMATOCRIT 35 % (35-52); HEMOGLOBIN 11.7 g/dL (11.5-16.0); LYMPHOCYTES # (AUTO) 1.4 10^3/uL (1.0-4.0); LYMPHOCYTES % (AUTO) 27 % (12-44); MEAN CORPUSCULAR HEMOGLOBIN 30 pg (25-34); MEAN CORPUSCULAR HGB CONC 33 g/dL (32-36); MEAN CORPUSCULAR VOLUME 91 fL (80-99); MEAN PLATELET VOLUME 10.4 fL (9.0-12.2); MONOCYTES # (AUTO) 0.5 10^3/uL (0.0-1.0); MONOCYTES % (AUTO) 10 % (0-12); NEUTROPHILS # (AUTO) 3.1 10^3/uL (1.8-7.8); NEUTROPHILS % (AUTO) 60 % (42-75); PLATELET COUNT 198 10^3/uL (130-400); WHITE BLOOD COUNT 5.1 10^3/uL (4.3-11.0)
[2020-08-04 06:39] LABS: ALBUMIN 3.3 GM/DL (3.2-4.5)
[2020-08-04 06:40] LABS: CHLORIDE 104 MMOL/L (98-107); POTASSIUM 3.2 MMOL/L (3.6-5.0); SODIUM 139 MMOL/L (135-145)
[2020-08-04 06:42] LABS: GLUCOSE 224 MG/DL (70-105); TOTAL PROTEIN 5.8 GM/DL (6.4-8.2)
[2020-08-04 06:43] LABS: CARBON DIOXIDE 23 MMOL/L (21-32)
[2020-08-04 06:44] LABS: BILIRUBIN,TOTAL 1.1 MG/DL (0.1-1.0)
[2020-08-04 06:45] LABS: ALKALINE PHOSPHATASE 144 U/L (40-136)
[2020-08-04 06:46] LABS: CREATININE SERUM 0.72 MG/DL (0.60-1.30); GFR ESTIMATED > 60
[2020-08-04 06:47] LABS: BUN/CREATININE RATIO 4
[2020-08-04 06:48] LABS: ALANINE AMINOTRANSFERASE 13 U/L (0-55)
--- NOTE | 2020-08-04 07:43 | Progress Note - Surgery ---
JOSE MERCEDES MED STUDENT 08/04/20 0743: Subjective Date Seen by a Provider: Aug 04, 2020 Time Seen by a Provider: 07:30 Subjective/Events-last exam Aria Gaona states she is doing fairly well this morning. She is tolerating clear liquids well with minimal nausea and no episodic vomiting. She has had 1 clear liquid BM after her colonoscopy yesterday late afternoon. She reports she is passing gas as well. She states she has continuous mild lower right back pain which is chronic and not causing her too much discomfort this morning. She states that she didn't sleep well last night due to interruptions and noise. She has been started on Flagyl and Ciprofloxacin IV. After starting her dose of Ciprofloxacin last night she developed itching and redness in the site around the IV. She received a dose of benadryl and nursing changed her IV site, and has since been doing well. Her Vital signs are stable this morning and her sat's are 97% on RA. She continues to be afebrile. Her glucose levels are remaining in the 200's and she continues to refuse insulin. Her K is 3.2 this am. Review of Systems General: Chills, Night Sweats, Malaise HEENT: Head Aches; No Visual Changes, No Eye Pain, No Ear Pain, No Dysphasia, No Sinus Congestion, No Post Nasal Drip, No Sore Throat, No Other Pulmonary: No Dyspnea, No Cough Cardiovascular: No: Chest Pain, Palpitations Gastrointestinal: No: Vomiting, Constipation Genitourinary: No Dysuria, No Frequency Musculoskeletal: No: other, neck pain, shoulder pain, back pain, hand pain, leg pain, foot pain Focused Exam Peripheral Pulses: 2+ Dorsalis Pedis (R), 2+ Left Dors-Pedis (L), 2+ Radial Pulses (R), 2+ Radial Pulses (L) Skin: normal color, warm/dry Objective Exam Vital Signs Date Time Temp Pulse Resp B/P (MAP) Pulse Ox O2 Delivery O2 Flow Rate FiO2 08/04/20 03:57 36.6 64 16 148/67 (94) 95 Room Air 08/04/20 00:00 36.6 62 18 178/74 (108) 96 Room Air 08/03/20 20:00 36.4 84 18 156/81 (106) 96 Room Air 08/03/20 19:50 Room Air 08/03/20 17:15 60 18 99 Room Air 08/03/20 17:10 61 18 99 Room Air 08/03/20 17:05 60 18 100 Room Air 08/03/20 16:00 35.9 59 18 170/78 (108) 99 Room Air 08/03/20 11:10 36.6 62 16 164/74 (104) 96 08/03/20 09:00 96 Room Air I & O 08/04/20 07:00 Intake Total 2460 ml Output Total 2600 ml Balance -140 ml Capillary Refill : Less Than 3 Seconds General Appearance: No Apparent Distress, WD/WN HEENT: PERRL/EOMI Neck: Full Range of Motion, Non Tender Respiratory: Chest Non Tender, No Accessory Muscle Use, No Respiratory Distress Cardiovascular: Regular Rate, Rhythm, No Edema, Normal Peripheral Pulses Peripheral Pulses: 2+ Carotid (R), 2+ Carotid (L), 2+ Dorsalis Pedis (R), 2+ Left Dors-Pedis (L), 2+ Radial Pulses (R), 2+ Radial Pulses (L) Gastrointestinal: normal bowel sounds, soft; No guarding, No rebound Extremity: Normal Inspection, Normal Range of Motion Neurologic/Psychiatric: Alert, Oriented x3, No Motor/Sensory Deficits Skin: Normal Color, Warm/Dry Lymphatic: No Adenopathy Results Lab Laboratory Tests 08/03/20 11:16: Glucometer 222H 08/03/20 17:51: Glucometer 205H 08/03/20 20:04: Glucometer 386H 08/04/20 05:31: White Blood Count 5.1, Red Blood Count 3.88, Hemoglobin 11.7, Hematocrit 35, Mean Corpuscular Volume 91, Mean Corpuscular Hemoglobin 30, Mean Corpuscular Hemoglobin Concent 33, Red Cell Distribution Width 13.0, Platelet Count 198, Mean Platelet Volume 10.4, Immature Granulocyte % (Auto) 0, Neutrophils (%) (Auto) 60, Lymphocytes (%) (Auto) 27, Monocytes (%) (Auto) 10, Eosinophils (%) (Auto) 2, Basophils (%) (Auto) 0, Neutrophils # (Auto) 3.1, Lymphocytes # (Auto) 1.4, Monocytes # (Auto) 0.5, Eosinophils # (Auto) 0.1, Basophils # (Auto) 0.0, Immature Granulocyte # (Auto) 0.0, Sodium Level 139, Potassium Level 3.2L, Chloride Level 104, Carbon Dioxide Level 23, Anion Gap 12, Blood Urea Nitrogen 3L, Creatinine 0.72, Estimat Glomerular Filtration Rate > 60, BUN/Creatinine Ratio 4, Glucose Level 224H, Calcium Level 9.0, Corrected Calcium 9.6, Total Bilirubin 1.1H, Aspartate Amino Transf (AST/SGOT) 16, Alanine Aminotransferase (ALT/SGPT) 13, Alkaline Phosphatase 144H, Total Protein 5.8L, Albumin 3.3 08/04/20 05:41: Glucometer 222H Microbiology 08/02/20 MRSA Screen - Final, Complete MRSA not isolated 08/01/20 Urine Culture - Final, Complete >=3 Gram Positive Isolates Assessment/Plan Assessment/Plan Admission Diagonsis Constipation Assessment/Plan constipation abnormal ct scan questionable apple core lesion sigmoid colon DM high blood pressure Patient started on Flagyl and Ciprofloxacin. Continues to refuse insulin. Continue to monitor vitals signs per orders. Continue to assess patient condition for potential complications s/p colonscopy Advance diet as tolerated today Encourage ambulation and up to chair at bedside TID Continue to monitor K and supplement as needed. Clinical Quality Measures DVT/VTE Risk/Contraindication: Risk Factor Score Per Nursin RFS Level Per Nursing on Admit: 3=High YASMIN SHORT DO 08/04/20 1311: Subjective Subjective/Events-last exam Patient doing well. Tolerating clears. Stopped taking cipro possible allergy. Wanting to go home. Denies n/v fever sweats chills shortness of breath or chest pain. Objective Exam General Appearance: No Apparent Distress, WD/WN HEENT: PERRL/EOMI, Normal ENT Inspection Neck: Full Range of Motion, Non Tender Respiratory: Chest Non Tender, No Accessory Muscle Use, No Respiratory Distress Cardiovascular: Regular Rate, Rhythm, No Edema Gastrointestinal: soft; No guarding, No rebound Extremity: Normal Inspection, Normal Range of Motion Neurologic/Psychiatric: Alert, Oriented x3, No Motor/Sensory Deficits Skin: Normal Color, Warm/Dry Lymphatic: No Adenopathy Assessment/Plan Assessment/Plan Assessment/Plan constipation abnormal ct scan questionable apple core lesion sigmoid colon s/p colonoscopy with hot bx polypectomy x 2 and cold biopsies of colon narrowing/inflammation DM high blood pressure Patient started on Flagyl and change flagyl to Rocephin. Continues to refuse insulin. Continue to monitor vitals signs per orders. Await biopsy results, discusssed with Dr. Handley can dc home with outpatient followup Advance diet as tolerated today Ok to dc from surgical standpoint. Supervisory-Addendum Brief Verification & Attestation Participated in pt care: history, MDM, physical Personally performed: exam, history, MDM, supervision of care Care discussed with: Medical Student Procedures: n/a Results interpretation: Verified all documentation Verification and Attestation of Medical Student E/M Service A medical student performed and documented this service in my presence. I reviewed and verified all information documented by the medical student and made modifications to such information, when appropriate. I personally performed the physical exam and medical decision making. Yasmin Short, Aug 04, 2020,13:11 JOSE MERCEDES MED STUDENT Aug 04, 2020 07:43 YASMIN SHORT DO Aug 04, 2020 13:11
[2020-08-04 08:00] VITALS: BP 153/74
[2020-08-04] MEDS: CIPROFLOXACIN 400 MG/D5W 200 ML (PRE-MIX) IV SCH (09:10)
[2020-08-04] MEDS: FAMOTIDINE 20MG/2ML IV (PEPCID) IVP SCH (09:11)
[2020-08-04] MEDS: lisINopril 20 MG (PRINIVIL) TABLET PO SCH (09:11)
--- NOTE | 2020-08-04 09:12 | NUR ---
Patient declined all morning medications.
[2020-08-04] MEDS ORDERED: cefTRIAXone FOR IV USE 1,000 MG in WATER (STERILE) FOR INJECTION 10 ML IV ONE (09:30)
[2020-08-04] MEDS ORDERED: FAMO20TA3 PO (11:44)
[2020-08-04] MEDS ORDERED: LISI-552 PO (11:44)
--- NOTE | 2020-08-04 11:46 | Discharge Summary ---
Discharge [facility] Reconcile Patient Problems Problems Reviewed?: Yes Discharge Medications New, Converted or Re-Newed RX: Transmitted to Pharmacy New Medications: Famotidine (Acid Solid Surface Fabricator (FAMOTIDINE)) 20 Mg Tablet 20 MG PO DAILY, #30 TAB Lisinopril (Lisinopril) 20 Mg Tablet 20 MG PO DAILY, #30 TAB Patient Instructions Goal/Follow Up Appt: You have a f.u appt with Eva Douglas on FriAug 09 @0920 at [facility] [place] You will need to see Dr Jeff next week to review you pathology Activity & Diet Discharge Diet: Soft Diet, Low Residue Activity as Tolerated: Yes Orders-Post D/C & Referrals Pneu Vac Indicated: Yes [facility] R MD Aug 04, 2020 11:46
[2020-08-04 12:00] VITALS: BP 173/82
[2020-08-04 12:29] VITALS: BP 173/82
== END 2020-08-04 12:29 | disposition home or self-care (01) ==
LOC: ER 22:06 → 4TH 22:07 → SDC 22:07 → UNDOADMOB 22:07 → 4TH 22:07 → UNDOADMOB 08-02 00:17 → UNDODISOB 08-04 12:29 → SDC 08-04 12:29 → UNDODISOB 08-04 12:30
PROVIDERS: ATTEND Family Medicine
DX: K63.5 Polyp of colon (principal); D12.0 Benign neoplasm of cecum; D12.5 Benign neoplasm of sigmoid colon; K57.30 Diverticulosis of large intestine without perforation or abscess without bleeding; I10 Essential (primary) hypertension; K21.9 Gastro-esophageal reflux disease without esophagitis; E11.9 Type 2 diabetes mellitus without complications; N39.0 Urinary tract infection, site not specified; Z79.899 Other long term (current) drug therapy; Z88.0 Allergy status to penicillin
CPT/HCPCS: 45380; 45381; 45384; 74176; 80053 ×4; 81000; 82962 ×3; 83036; 83690; 84443; 85025 ×4; 86141; 87081; 87088; 88305; 99284; G0378; 36415

== ENCOUNTER 2023-09-29 18:57 | Emergency (ER) | payer MEDICARE ==
[~2023-09-29] VITALS: Ht 165.1 cm; Wt 63.8 kg
[~2023-09-29 18:57] MED LIST: FAMO-356 PO; LISI20TA26 PO
[2023-09-29] MEDS ORDERED: fentaNYL INJECTION 100 MCG/2 ML VIAL IM ONE (19:00)
--- NOTE | 2023-09-29 19:00 | ED Fall/Injury ---
General Stated Complaint: FALL History of Present Illness Date Seen by Provider: Sep 29, 2023 Time Seen by Provider: 19:00 Initial Comments 88-year-old female presents with right knee and right hip pain following a fall. Patient also complains of some low back pain that is bilateral but this is chronic but more on the right side. No midline tenderness. Patient reports she was getting out of a car when she fell landing on her right knee and has pain in her knee and her hip however she is also been having pain in the hip and groin for about a week and been seeing a chiropractor for it. Allergies and Home Medications Allergies Coded Allergies: Penicillins (Verified Allergy, Severe, SEVERE HIVES ALL OVER BODY, 08/02/20) Patient Home Medication List Home Medication List Reviewed: Yes Famotidine (Acid Warehouse Worker (FAMOTIDINE)) 20 Mg Tablet, 20 MG PO DAILY Prescribed by: ANTHONY HERNANDEZ on 08/04/20 1144 Lisinopril (Lisinopril) 20 Mg Tablet, 20 MG PO DAILY Prescribed by: ANTHONY HERNANDEZ on 08/04/20 1144 Review of Systems Review of Systems Constitutional: no symptoms reported Respiratory: no symptoms reported Cardiovascular: no symptoms reported Musculoskeletal: see HPI Skin: other (Small abrasion right knee) Psychiatric/Neurological: See HPI Past Dgjzwjy-Fyaobe-Sjjusm Hx Immunizations Up To Date Tetanus Booster (TDap): Unknown Seasonal Allergies Seasonal Allergies: No Past Medical History Surgeries: No Respiratory: No Cardiac: No 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 oz. kg; 26.26 BMI Method: General Appearance: WD/WN, no apparent distress, thin, other (Frail) Cardiovascular: regular rate, rhythm, no edema Respiratory: lungs clear, normal breath sounds Back: no vertebral tenderness; No vertebral tenderness; other (Tenderness right lateral hip) Extremities: other (Tenderness right knee, right hip) Neurologic/Psychiatric: alert, normal mood/affect, oriented x 3 Skin: other (Small superficial abrasion right knee) Progress/Results/Core Measures Results/Orders My Orders Orders - KARTHIK PADILLA DO Knee 4 View Or > Right (09/29/23 19:00) Pelvis With Right Hip 2-3 View (09/29/23 19:00) Fentanyl Injection (Fentanyl Injection (09/29/23 19:00) Medications Given in ED Current Medications Medications Dose Ordered Sig/Michelle Route Start Time Stop Time Status Last Admin Dose Admin Fentanyl Citrate 12.5 mcg ONCE ONCE IM 09/29/23 19:00 09/29/23 19:03 DC 09/29/23 19:11 12.5 MCG Vital Signs/I&O 09/29/23 09/29/23 18:57 18:57 Temp 36.5 36.5 Pulse 77 77 Resp 16 16 B/P (MAP) 127/105 (112) 127/105 (112) Pulse Ox 98 98 O2 Delivery Room Air Room Air Progress Progress Note : Progress Note Patient is x-rays were ordered reviewed with initial interpretation negative by me with interpreted as per radiology report. Patient physical exam shows no vertebral tenderness. She does have chronic lower bilateral pain that was present prior to the fall. Patient did not fall on her buttocks or back. She fell down on her knee and she does not have vertebral tenderness or pain so an lumbar x-ray was not obtained. Patient with contusions of both knee hip and likely hip sprain. She also reported later in the conversation that her right groin and hip had been hurting from a prior fall and she has been seeing a chiropractor for this. I discussed with her that she can continue her outpatient treatment. I did recommend a walker based on her age, frailty and pain to her knee and hip causing her to likely change her gait a little bit. Patient was stable and discharged home. Departure Impression Primary Impression: Fall from standing Qualified Codes: W19.XXXA - Unspecified fall, initial encounter Additional Impressions: Contusion of right knee, initial encounter Strain of right hip and thigh Qualified Codes: S76.011A - Strain of muscle, fascia and tendon of right hip, initial encounter; S76.911A - Strain of unspecified muscles, fascia and tendons at thigh level, right thigh, initial encounter Contusion of right hip region Chronic bilateral low back pain Qualified Codes: M54.50 - Low back pain, unspecified; G89.29 - Other chronic pain Disposition: 01 HOME, SELF-CARE Condition: Stable Departure-Patient Inst. Referrals: FELICIANO CRUZ APRN (PCP/Family) Primary Care Physician Patient Instructions: Minor Contusion ED, Muscle Strain (DC) Add. Discharge Instructions: 4% topical lidocaine with menthol cream gel or patch use as directed on package. Voltaren cream or gel use as directed on package. Tylenol ibuprofen as needed for discomfort. Ice to affected area for 10 to 15 minutes at a time 3-4 times daily. KARTHIK PADILLA DO Sep 29, 2023 19:00
--- NOTE | 2023-09-29 19:29 | Diagnostic Imaging Report ---
INDICATION: Right hip pain AP view pelvis and 2 views of the right hip are obtained. The pelvic and obturator rings appear to be intact. Hips appear to be intact. Joint spaces well maintained. IMPRESSION: Unremarkable pelvis and right hip. Dictated by: Dictated on workstation # [id number]
--- NOTE | 2023-09-29 19:30 | Diagnostic Imaging Report ---
EXAMINATION: Right knee radiograph EXAM DATE: 09/29/2023 7:20 PM COMPARISON: None available. HISTORY: Right knee pain after fall. TECHNIQUE: 4 views FINDINGS: There is no acute fracture, dislocation, or destructive osseous process. Degenerative joint space narrowing greatest in the medial compartment. There are scattered osteophytes throughout the right knee. No joint effusion. The soft tissues are normal. IMPRESSION: 1. Degenerative changes of the right knee without acute osseous abnormality. Dictated by: Dictated on workstation # [id number]
[2023-09-29 19:50] VITALS: BP 156/71
== END 2023-09-29 19:50 | disposition home or self-care (01) ==
LOC: EDUNIT# 18:57 → ER FS 18:58
DX: S76.011A Strain of muscle, fascia and tendon of right hip, initial encounter (principal); S76.911A Strain of unspecified muscles, fascia and tendons at thigh level, right thigh, initial encounter; S80.01XA Contusion of right knee, initial encounter; G89.29 Other chronic pain; M54.50 Low back pain, unspecified; W18.30XA Fall on same level, unspecified, initial encounter
CPT/HCPCS: 73502; 73564